=== PATIENT | female | born 1995 | race Caucasian/White ===

== ENCOUNTER 2017-10-13 22:40 | Emergency (ER) | payer OTHER ==
[2017-10-13 22:48] VITALS: BP 130/82; PULSE 73; TEMP 98.5; BMI 29.8
--- NOTE | 2017-10-14 01:36 | PDOC ---
History of Present Illness - General Chief Complaint: Chest Pain Stated Complaint: ABNORMAL EKG Time Seen by Provider: 10/14/17 01:26 History Source: Patient - History of Present Illness Initial Comments: 10/14/17 03:52 22 year old female with nausea and vomiting with one episode of syncopal episode after vomiting. patient reports that chest pain has been intermittent for several weeks. today went to urgent care noted to have sinus arrhythmia and was sent to the ED for evaluation. patient reports feeling SOB with walking. symptoms impproved at this time, patient is a smoker; psychiatric disorder Past History - Past Medical History Allergies/Adverse Reactions: Allergies Allergy/AdvReac Type Severity Reaction Status Date / Time No Known Allergies Allergy Verified 10/13/17 22:44 COPD: No DVT: No Dementia: No - Immunization History Immunization Up to Date: Yes - Suicide/Smoking/Psychosocial Hx Smoking History: Never smoked Have you smoked in the past 12 months: No Information on smoking cessation initiated: No Hx Alcohol Use: No Drug/Substance Use Hx: No Substance Use Type: None *Physical Exam - Vital Signs Last Vital Signs Temp Pulse Resp BP Pulse Ox 98.5 F 73 16 130/82 99 10/13/17 22:44 10/13/17 22:44 10/13/17 22:44 10/13/17 22:44 10/13/17 22:44 - Physical Exam General Appearance: Yes: Appropriately Dressed Respiratory/Chest: positive: Chest Tender (on palpation), Lungs Clear, Normal Breath Sounds Cardiovascular: positive: Regular Rhythm, Regular Rate Gastrointestinal/Abdominal: positive: Normal Bowel Sounds, Soft Extremity: positive: Normal Capillary Refill, Normal Inspection Integumentary: positive: Normal Color, Dry, Warm Neurologic: positive: Fully Oriented, Alert Heart Score/ECG Review - History History: Slightly suspicious - Electrocardiogram EKG: Normal - Age Age: </= 45 - Risk Factors Based on the list above the patient has:: No risk factors known - Troponin Troponin: </= normal limit - Score Heart Score - Total: 0 - ECG Intrepretation Rhythm: Regular Rhythm Comment:: 10/14/17 03:56 NSR : 76 bpm incomplete right bundle branch block ED Treatment Course - LABORATORY CBC & Chemistry Diagram: 10/14/17 02:39 10/14/17 02:39 - ADDITIONAL ORDERS Additional order review: 10/14/17 02:39 RBC 4.53 MCV 87.5 MCHC 34.7 RDW 12.6 MPV 8.2 Neutrophils % 60.5 Lymphocytes % 29.8 Monocytes % 8.5 Eosinophils % 0.7 Basophils % 0.5 - RADIOLOGY Radiology Studies Ordered: Category Date Time Status CHEST PA & LAT [RAD] Stat Radiology 10/14/17 01:36 Completed Medical Decision Making - Medical Decision Making chest pain; near syncope episode P: cbc cmp cardiac beta HCG 10/14/17 04:13 Patient is advised to follow up with cardiology as soon as possible. strict return precautions reviewed. patient reports that she couldn't not stay for any further testing due to family " issue that just came up" patient is advised to return to the ed for any worsening symptoms *DC/Admit/Observation/Transfer Diagnosis at time of Disposition: Chest pain Qualifiers: Chest pain type: chest pain on breathing Qualified Code(s): R07.1 - Chest pain on breathing - Discharge Dispostion Disposition: HOME - Referrals Referrals: Vicente Cummins MD [Staff Physician] - 24 hours - Patient Instructions Printed Discharge Instructions: DI for Atypical Chest Pain Additional Instructions: you have an abnormal EKG . it is important that you follow up with a farm management professor for further workup. you labs are within normal limits. return to the ER if symptoms worsen. - Post Discharge Activity Forms/Work/School Notes: Back to Work, Back to School
[2017-10-14 02:54] LABS: BASO % 0.5 % (0-2.0); EOS % 0.7 % (0-4.5); HEMATOCRIT 39.6 % (32.4-45.2); HEMOGLOBIN 13.8 GM/dL (10.7-15.3); LYMPH % 29.8 % (8-40); MCH 30.4 pg (25.7-33.7); MCHC 34.7 g/dl (32.0-36.0); MEAN CELL VOLUME 87.5 fl (80-96); MEAN PLT VOLUME 8.2 fl (7.5-11.1); MONO % 8.5 % (3.8-10.2); NEUT % 60.5 % (42.8-82.8); PLATELET COUNT 279 K/MM3 (134-434); RBC 4.53 M/mm3 (3.60-5.2); RDW 12.6 % (11.6-15.6)
[2017-10-14 03:10] LABS: INR 1.03 (0.83-1.09); PROTHROMBIN TIME (PATIENT) 11.6 SEC (9.7-13.0)
[2017-10-14 03:32] LABS: ANION GAP 7 MMOL/L (8-16); BILIRUBIN,TOTAL 0.6 mg/dL (0.2-1.0); BLOOD UREA NITROGEN 13 mg/dL (7-18); CALCIUM 8.8 mg/dL (8.5-10.1); CHLORIDE 105 mmol/L (98-107); CO2 27 mmol/L (21-32); CREATININE 0.9 mg/dL (0.55-1.02); GLUCOSE,RANDOM 91 mg/dL (74-106); MAGNESIUM 1.9 mg/dL (1.8-2.4); POTASSIUM 3.7 mmol/L (3.5-5.1); SGOT/AST 16 U/L (15-37); SGPT/ALT 22 U/L (12-78); SODIUM 139 mmol/L (136-145); TOT PROT 7.4 g/dl (6.4-8.2)
[2017-10-14 03:36] LABS: ALK PHOS 73 U/L (45-117)
--- NOTE | 2017-10-14 11:31 | EKG ---
Test Reason : Blood Pressure : / mmHG Vent. Rate : 076 BPM Atrial Rate : 076 BPM P-R Int : 150 ms QRS Dur : 110 ms QT Int : 406 ms P-R-T Axes : 071 069 050 degrees QTc Int : 456 ms NORMAL SINUS RHYTHM POSSIBLE LEFT ATRIAL ENLARGEMENT INCOMPLETE RIGHT BUNDLE BRANCH BLOCK BORDERLINE ECG NO PREVIOUS ECGS AVAILABLE Confirmed by TED MARTINI MD ([id number]) on 10/14/2017 11:31:26 AM Referred By: Confirmed By:TED MARTINI MD
--- NOTE | 2017-10-15 13:46 | EKG ---
Test Reason : Blood Pressure : / mmHG Vent. Rate : 079 BPM Atrial Rate : 079 BPM P-R Int : 148 ms QRS Dur : 106 ms QT Int : 376 ms P-R-T Axes : 071 067 053 degrees QTc Int : 431 ms NORMAL SINUS RHYTHM POSSIBLE LEFT ATRIAL ENLARGEMENT INCOMPLETE RIGHT BUNDLE BRANCH BLOCK BORDERLINE ECG NO PREVIOUS ECGS AVAILABLE Confirmed by ANJEL JIMÉNEZ MD ([id number]) on 10/15/2017 1:45:44 PM Referred By: Confirmed By:ANJEL JIMÉNEZ MD
== END 2017-10-14 04:30 | disposition home or self-care (01) ==
LOC: JER 22:40
DX: R07.1 Chest pain on breathing (principal)
CPT/HCPCS: 36415; 71046-TC-FY; 80053; 82550; 83735; 84484; 84702; 85025; 85379; 85610; 93005; 93010; 99282-25